=== PATIENT | male | born 1995 | race Caucasian/White ===

== ENCOUNTER 2021-11-18 04:03 | Emergency (ER) | payer MEDICAID, OTHER ==
[~2021-11-18] VITALS: Ht 167.6 cm; Wt 80.0 kg
[2021-11-18] MEDS ORDERED: IBUPROFEN 600MG TABLET PO ONE (04:30)
[2021-11-18] MEDS ORDERED: IBUP-2029 MT (06:22)
[2021-11-18 06:40] VITALS: BP 130/80
== END 2021-11-18 06:40 ==
LOC: ER 04:18
DX: M79.602 Pain in left arm (principal); F17.290 Nicotine dependence, other tobacco product, uncomplicated
CPT/HCPCS: 73060; 73080; 73090; 99284